=== PATIENT | male | born 1975 | race Caucasian/White ===

== ENCOUNTER 2020-06-26 04:14 | Observation (INO) ==
[2020-06-26 04:29] VITALS: BMI 31.3
--- NOTE | 2020-06-26 04:59 | DR.EXTPAIN ---
HPI - Time seen Time seen: 04:58 - PCP Primary Care Physician: NFD - Complaint/Symptoms Chief Complaint Doctor Comments: Patient seen earlier today with abdominal pain and diarrhea with bilateral lung opacities on CT scan states he is having right sided chest pain and left sided chest pain with pain in his back. states he is having problems breathing and cannot sleep. States he did not get his medicines when he left the hospital. He denies fever, chills, nausea or vomiting and states his diarrhea has resolved. Patient requesting to be admitted tonight. Chief Complaint:: "LUNGS ARE HURTING" Self Treatment fo Chief Complaint: WAS SEEN EARLIER IN THE ER FOR STOMACH PAIN,WAS PRESCRIBED AZITHROMYCIN - Nurses notes reviewed Nurses Notes Review: Yes - Source History Provided: Patient - Mode of arrival Mode of Arrival: Ambulatory - Timing Onset of Chief Complaint: 06/23/20 - Context History of: None - Associated signs and symptoms Associated Signs and Symptoms: Pain, Cough, Shortness of Breath PMH - PMH Past Medical History: No Past Surgical History: Yes Surgical History: Cholecystectomy - Family History History of Family Medical Conditions: Yes Family Medical History: Cancer - Social History Does patient currently use any type of tobacco product: No Have you used tobacco products in the last 12 months: No Type of Tobacco Use: None Does any household member use tobacco: No Alcohol Use: None Do you use any recreational Drugs:: No Lives With: Family Lives Where: Home - Travel Risk Coronavirus risk:travel/contact w/high risk person: No Has patient experienced Coronavirus symptoms: Yes Coronavirus symptoms experienced: Shortness of Breath - infectious screening In the last 2 months have you had wt loss of >10#?: YES Have you had fever, night sweats or hemotysis?: No Have you traveled outside the country in the last 6 months?: No Isolation: Standard ROS - Review of Systems Constitutional: No Symptoms Reported Eyes: No Symptoms Reported ENTM: No Symptoms Reported Respiratoy: No Symptoms Reported, Non-Productive Cough, Short of Breath Cardiovascular: No Symptoms Reported, Chest Pain Gastrointestinal/Abdominal: No Symptoms Reported. negative: See HPI, Abdominal Pain, Constipation, Diarrhea, Nausea, Vomiting, Food Intolerance, Other Genitourinary: No Symptoms Reported. negative: See HPI, Discharge, Dysuria, Frequency, Hematuria, Pain, Bleeding, Other Neurological: No Symptoms Reported Musculoskeletal: No Symptoms Reported, Back Pain Integumentary: No Symptoms Reported. negative: See HPI, Change in Color, Change in Hair/Nails, Dryness, Lesions, Lumps, Rash, Itching, Wound, Bruises, Juandice, Other Hematologic/Lymphatic: No Symptoms Reported Endocrine: No Symptoms Reported. negative: See HPI, Excessive Sweating, Flushing, Intolerance to Cold, Intolerance to Heat, Increased Hunger, Increased Thirst, Increased Urine, Unexplained Weight Gain, Unexplained Weight Loss, Failure to Thrive, Decreased Appetite, Other Psychiatric: No Symptoms Reported. negative: See HPI, Anxiety, Depression, Hallucinations, Excessive crying, Suicidal, Other PE - General Limitations: No Limitations General Appearance: Alert, In No Apparent Distress - Head Head Exam: Normal Inspection, Atraumatic, Normocephalic - Eyes Eye exam: Normal Appearance, PERRL, EOMI. negative: Scleral Icterus, Conjunctival Injection, Nystagmus, Miosis, Mydrasis, Periorbital Swelling, Periorbital Tenderness, Other - ENT ENT Exam: Normal Exam, Normal Oropharynx, Normal External Ear Exam, Mucous Membranes Moist, TM's Normal Bilaterally - Neck Neck Exam: Normal Inspection, Full ROM, Trachea Midline - Chest Chest Inspection: Normal Inspection, Symmetric Chest Wall Rise. negative: Tenderness, Rash, Abscess, Other - Respiratory Respiratory Exam: Normal Lung Sounds Bilat Respiratory Exam: Bilateral Clear to Auscultation - Cardiovascular Cardiovascular Exam: Regular Rate, Normal Rhythm, Normal Heart Sounds - Abdominal Exam Abdominal Exam: Normal Inspection, Normal Bowel Sounds, Soft. negative: Distention, Tenderness, Guarding, Rebound, Rigidity, Dimnished Bowel Sounds, Hyperactive Bowel Sounds, Hypoactive Bowel Sounds, Organomegaly, Trauma, Incision, Ascites, Mass, Bruit, Pulsatile Mass, Hernia, Other Abdominal Tenderness: negative: RUQ, RLQ, LUQ, LLQ, Epigastrium, Suprapubic, Diffuse, Mild, Moderate, Severe, Other - Extremities Extremities Exam: Normal Inspection, Full ROM, Normal Capillary Refill. negative: Tenderness, Edema, Joint Swelling, Calf Tenderness, Other - Upper Extremities Shoulder Exam: Normal Inspection, Full ROM. negative: Tenderness, Swelling, Abrasion, Laceration, Ecchymosis, Deformity, Crepitus, Dislocation, Erythema, Tenderness over AC Joint, Other Arm Exam: Normal Inspection, Full ROM. negative: Tenderness, Swelling, Abrasion, Laceration, Ecchymosis, Deformity, Crepitus, Erythema, Other Elbow Exam: Normal Inspection, Full ROM. negative: Tenderness, Swelling, Abrasion, Laceration, Ecchymosis, Deformity, Crepitus, Dislocation, Erythema, Effusion, Pain w/ pronation, Pain w/ Spuination, Tenderness over Radial Head, Other Forearm Exam: Normal Inspection, Full ROM. negative: Tenderness, Swelling, Abrasion, Laceration, Ecchymosis, Deformity, Crepitus, Erythema, Dislocation, Other Hand Exam: Normal Inspection, Full ROM. negative: Tenderness, Swelling, Abrasion, Laceration, Ecchymosis, Skin Avulsion, Deformity, Crepitus, Erythema, Dislocation, Amputation, Nail Avulsion, Subungual Hematoma, Other Neuromotor Exam: Normal Exam. negative: Wrist Extension, Thumb Opposition, Thumb IP Flexion, Thumb Adduction, Fingers 2-5 Abduction, Other Neurosensory Exam: Normal Exam Upper Ext. Vascular Exam: Capillary Refill (normal) - Lower Extremities Hip/Pelvis Exam: Normal Inspection, Full ROM. negative: Tenderness, Swelling, Abrasion, Laceration, Ecchymosis, Deformity, Crepitus, Dislocation, Erythema, Ex ternal Rotation, Internal Rotation, Shortening, Pelvis Stable, Other Upper Leg Exam: Normal Inspection, Full ROM. negative: Tenderness, Swelling, Abrasion, Laceration, Ecchymosis, Deformity, Crepitus, Dislocation, Erythema, Other Knee Exam: Normal Inspection, Full ROM. negative: Tenderness, Swelling, Abrasion, Laceration, Ecchymosis, Deformity, Crepitus, Dislocation, Erythema, Effusion, Anterior Drawer Sign, Posterior Draw Sign, Pain with Valgus, Laxity with Valgus, Pain with Varus, Knee Extension Intact, Other Lower Leg Exam: Normal Inspection, Full ROM. negative: Tenderness, Swelling, Abrasion, Laceration, Deformity, Ecchymosis, Crepitus, Dislocation, Erythema, Palpable Cord, Homans' Sign, Achilles Tendon Intact, Other Ankle Exam: Normal Inspection, Full ROM. negative: Tenderness, Swelling, Abrasion, Laceration, Ecchymosis, Deformity, Crepitus, Dislocation, Erythema, Tenderness over talofibular lig, Anterior Draw Sign, Other Foot/Toe Exam: Normal Inspection, Full ROM. negative: Tenderness, Swelling, Abrasion, Laceration, Ecchymosis, Deformity, Crepitus, Dislocation, Erythema, Amputation, Puncture Wound, Foreign Body, Calcaneal Tenderness, Nail Avulsion, Other Neurovascular/Tendon Exam: Normal Capillary Refill. negative: Pulse Deficit, Motor Deficit, Sensory Deficit, Tendon Deficit, Extremity Cold to Touch, Pallor, Normal 2-point discrimination, Normal Fine/Light Touch, Foot Drop, Peroneal Nerve Deficit, Other Gait Exam: Observed and Normal - Back Back Exam: Normal Inspection, Full ROM. negative: Tenderness, (R) CVA Tenderness, (L) CVA Tenderness, Muscle Spasm, Paraspinal Tenderness, Vertebral Tenderness, Rashes, (R) Sciatic Notch Tenderness, (L) Sciatic Notch Tendern, (R) Straight Leg Raise, (L) Straight Leg Raise, Other - Neurological Neurological Exam: Alert, Oriented X3, CN II-XII Intact, Normal Gait, Reflexes Normal. negative: Motor Sensory Deficit, Other - Psychiatric Psychiatric Exam: Normal Affect, Normal Mood. negative: Depressed, Agitated, Anxious, Flat Affect, Manic, Homicidal Ideation, Suicidal Ideation, Other - Skin Skin Exam: Warm, Dry, Intact, Normal Color Type of Lesion: negative: Rash, Abscess, Laceration, Foreign Body, Bite/Sting, Abrasion, Other Distribution: negative: Generalized, Involves Palms/Soles, Head, Face, Neck, Thorax, Chest, Back, Abdomen, Genitals, LUE, LLE, RUE, RLE, Other Description: negative: Size, Tenderness, Erythematous, Swelling, Macular, Papular, Vesicular, Blisters, Cofluent, Bullous, Petechial, Purpuric, Urticarial, Crusting, Discharge, Fluctuant, Indurated, Other - Vital Signs Vitals: Temperature 98.6 F Pulse Rate 95 Respiratory Rate 22 Blood Pressure 122/77 O2 Sat by Pulse Oximetry 98 Course - Reevaluation 1st: Improved - Consultation Called: 07:34 Call Returned: 07:34 (Dr. Garcia to admit) - Education/Counseling Education/Counseling: Patient, Family Educated On: Treatment, Diagnosis, Needs for Follow Up ROR - Labs Reviewed Laboratory Results Reviewed?: Yes (All labs and x-ray results reviewed and discu ssed with patient) Result Diagrams: 06/26/20 05:20 06/26/20 05:20 - XRAY XRAY Interpreted by: Radiologist (CXR: Low lung volume with patchy bibasilar atelectasis vs infiltrates.) - Labs Reviewed Laboratory: WBC 5.7 X10^3/uL (3.6-10.0) 06/26/20 05:20 RBC 4.48 X10^6/uL (4.7-6.0) L 06/26/20 05:20 Hgb 14.0 g/dL (13.5-18.0) 06/26/20 05:20 Hct 40.9 % (42.0-54.0) L 06/26/20 05:20 MCV 91.2 fL (80.0-100.0) 06/26/20 05:20 MCH 31.3 pg (27.0-34.0) 06/26/20 05:20 MCHC 34.3 g/dL (33.0-35.0) 06/26/20 05:20 RDW 12.6 % (11.6-16.5) 06/26/20 05:20 Plt Count 81 X10^3/uL (150.0-450.0) L 06/26/20 05:20 MPV 9.7 fL (7.4-11.0) 06/26/20 05:20 Neut % (Auto) 80.1 % (42.0-75.0) H 06/26/20 05:20 Lymph % (Auto) 12.4 % (21.0-51.0) L 06/26/20 05:20 [place] % (Auto) 6.9 % (0.0-13.0) 06/26/20 05:20 Eos % (Auto) 0.0 % (0.9-2.9) L 06/26/20 05:20 Baso % (Auto) 0.6 % (0.2-1.0) 06/26/20 05:20 Neut # (Auto) 4.5 x10^3/uL (2.2-4.8) 06/26/20 05:20 Lymph # (Auto) 0.7 X10^3/uL (1.3-2.9) L 06/26/20 05:20 [place] # (Auto) 0.4 x10^3/uL (0.3-0.8) 06/26/20 05:20 Eos # (Auto) 0.0 x10^3/uL (0.0-0.2) 06/26/20 05:20 Baso # (Auto) 0.0 X10^3/uL (0.0-0.1) 06/26/20 05:20 Absolute Nucleated RBC 0.1 /100WBC 06/26/20 05:20 PT 13.2 SECONDS (11.8-14.3) 06/26/20 05:20 INR Target Range - 06/26/20 05:20 INR 1.03 (0.8-1.3) 06/26/20 05:20 APTT 30.0 SECONDS (22.9-36.5) 06/26/20 05:20 PTT Comment - 06/26/20 05:20 D-Dimer 0.32 ug/ml (0.0-0.57) 06/26/20 05:20 Sodium 139 mmol/L (136-145) 06/26/20 05:20 Corrected Sodium 139 mmol/L (136-145) 06/26/20 05:20 Potassium 3.8 mmol/L (3.5-5.1) 06/26/20 05:20 Chloride 104 mmol/L (98-107) 06/26/20 05:20 Carbon Dioxide 26.7 mmol/L (21-32) 06/26/20 05:20 BUN 10 mg/dL (7-18) 06/26/20 05:20 Creatinine 1.03 mg/dL (0.70-1.30) 06/26/20 05:20 Est GFR (MDRD) Af Amer > 60 (>60) 06/26/20 05:20 Est GFR (MDRD) Non-Af > 60 (>60) 06/26/20 05:20 Glucose 117 mg/dL (65-99) H 06/26/20 05:20 Calcium 8.7 mg/dL (8.5-10.1) 06/26/20 05:20 Corrected Calcium TNP 06/26/20 05:20 Magnesium 1.8 mg/dL (1.7-2.9) 06/26/20 05:20 Total Bilirubin 0.80 mg/dL (0.2-1.0) 06/26/20 05:20 AST 99 Units/L (15-37) H 06/26/20 05:20 ALT 66 Units/L (12-78) 06/26/20 05:20 Alkaline Phosphatase 111 Units/L (46-116) 06/26/20 05:20 Creatine Kinase 52 Units/L (39-308) 06/26/20 05:20 CK-MB (CK-2) < 1.0 ng/mL (0-4.0) 06/26/20 05:20 CK/CKMB % Calc 1.9 % (<4) 06/26/20 05:20 Troponin I < 0.02 ng/mL (0-1.5) 06/26/20 05:20 Total Protein 7.0 g/dL (6.4-8.2) 06/26/20 05:20 Albumin 3.4 g/dL (3.4-5.0) 06/26/20 05:20 Globulin 3.6 g/dL (2.5-4.5) 06/26/20 05:20 Albumin/Globulin Ratio 0.9 Ratio (1.1-2.1) L 06/26/20 05:20 SARS-CoV-2 (PCR) Positive (NEGATIVE) A 06/26/20 05:56 Opioid - Opioid Risk Tool Age (Eleuterio box if 16-45): No History of Preadolescent Sexual Abuse: No Total: 0 Total Score Risk Category: Low Risk - Diagnosis Discharge Problem: Pneumonia due to COVID-19 virus, Hyperglycemia, Diarrhea due to COVID-19, Failure of outpatient treatment Chest pain Qualifiers: Chest pain type: unspecified Qualified Code(s): R07.9 - Chest pain, unspecified - Discharge Plan Disposition: ADMITTED INPATIENT Condition: Stable - Follow ups/Referrals Follow ups/Referrals: NFD,None [Primary Care Provider] - 3 days - Instructions
[2020-06-26 05:34] LABS: BASOPHILS % (AUTO) 0.6 % (0.2-1.0); HEMATOCRIT 40.9 % (42.0-54.0); LYMPHOCYTES # (AUTO) 0.7 X10^3/uL (1.3-2.9); LYMPHOCYTES % (AUTO) 12.4 % (21.0-51.0); MEAN CORPUSCULAR HEMOGLOBIN 31.3 pg (27.0-34.0); MEAN CORPUSCULAR HGB CONC 34.3 g/dL (33.0-35.0); MEAN CORPUSCULAR VOLUME 91.2 fL (80.0-100.0); MEAN PLATELET VOLUME 9.7 fL (7.4-11.0); MONOCYTES # (AUTO) 0.4 x10^3/uL (0.3-0.8); MONOCYTES % (AUTO) 6.9 % (0.0-13.0); NEUTROPHILS # (AUTO) 4.5 x10^3/uL (2.2-4.8); NEUTROPHILS % (AUTO) 80.1 % (42.0-75.0); PLATELET COUNT 81 X10^3/uL (150.0-450.0); RED BLOOD COUNT 4.48 X10^6/uL (4.7-6.0); RED CELL DISTRIBUTION WIDTH 12.6 % (11.6-16.5); WHITE BLOOD COUNT 5.7 X10^3/uL (3.6-10.0)
--- NOTE | 2020-06-26 05:45 | RAD ---
HISTORYCHEST PAINSTUDYCHEST, 1 [id number]/07/2020FINDINGSThe trachea is midline. The cardiac silhouette is unremarkable. Low lung volume. Patchy bibasilar atelectasis versus infiltrates. No pleural effusion or pneumothorax.. The bony thorax is unremarkable.IMPRESSIONLow lung volume with patchy bibasilar atelectasis versus infiltrates.Electronically signed by: Dalila Gómez (Jun 26, 2020 05:43:39)
[2020-06-26 05:53] LABS: BLOOD UREA NITROGEN 10 mg/dL (7-18); CALCIUM 8.7 mg/dL (8.5-10.1); CARBON DIOXIDE 26.7 mmol/L (21-32); CHLORIDE 104 mmol/L (98-107); COR NA(FOR HYPERGLY) 139 mmol/L (136-145); CREATININE 1.03 mg/dL (0.70-1.30); SODIUM 139 mmol/L (136-145); TROPONIN I < 0.02 ng/mL (0-1.5); eGFR NON BLACK RACES > 60 (>60)
[2020-06-26 05:59] LABS: ALANINE AMINOTRANSFERASE 66 Units/L (12-78); ALBUMIN 3.4 g/dL (3.4-5.0); ALKALINE PHOSPHATASE 111 Units/L (46-116); ASPARTATE AMINO TRANSFERASE 99 Units/L (15-37); CKMB % 1.9 % (<4); CREATINE KINASE 52 Units/L (39-308); CREATINE KINASE MB < 1.0 ng/mL (0-4.0); MAGNESIUM 1.8 mg/dL (1.7-2.9)
[2020-06-26] MEDS ORDERED: NS 1000 ML 1,000 ML ONE (08:29)
[2020-06-26] MEDS: NS 1000 ML 1,000 ML IV SCH (08:40)
[2020-06-26] MEDS: ASCORBIC ACID INJ MULTI-DOSE VIAL 1,500 MG in NS 100 ML IV 100 ML IV SCH ×3 (09:22→21:02)
[2020-06-26] MEDS: VITAMIN D (1.25MG) PO SCH ×2 (09:23→09:28)
[2020-06-26] MEDS: DECADRON TAB PO SCH ×2 (09:23→09:27)
[2020-06-26] MEDS: TRICOR TAB 160 MG PO SCH (09:23)
[2020-06-26] MEDS: LOVENOX INJ 30 MG SYR SC SCH ×2 (09:23→21:02)
[2020-06-26] MEDS: PLAQUENIL PO SCH ×2 (09:23→09:29)
[2020-06-26] MEDS: ZINC SULFATE PO SCH ×2 (09:23→21:02)
[2020-06-26] MEDS ORDERED: REMDESIVIR 200 MG in NS 250 ML IV 250 ML IV SCH (09:25)
--- NOTE | 2020-06-26 10:29 | DR.H&P ---
H&P History & Physical for Day of: H&P Date: 06/26/20 Chief Complaint Chief Complaint: Abdominal pain/diarrhea Shortness of breath Allergies Allergies Allergy/AdvReac Type Severity Reaction Status Date / Time No Known Drug Allergies Allergy Verified 06/26/20 07:42 History of Present Illness History of Present Illness: Pt is a 45 y/o m no pmhx presenting after having persistent abdominal pain, diarrhea, and shortness of breath. He reports that symptoms started last and have gradually worsened. On the night before admission, pt had difficulty breathing and was unable to sleep. Labs/imaging:Wbc 5.7, Hgb 14, Plt 81, Na 139, K 3.8, Cr 1.03, Plt 117, AST 99, ALT 66, ALP 111, Troponin negative, CRP 30, UA +ketones, COVID19 positive (06/26). CXR: Low lung volume with patchy bibasilar atelectasis versus infiltrates. CTA: No evidence of pulmonary embolism. Ground-glass opacities scattered in the bilateral lungs concerning for pneumonia. CTAP: No intra-abdominal or pelvic abnormality identified. Cholecystectomy. Will treat patient for OOVID19 pneumonia and start on treatments: Remdesivir, Zosyn, Solumedrol 80mg Q8h, Tricor, Bronchodilators, supplemental O2 prn, Lovenox DVT ppx, Pneumonia protocol. Will continue to monitor and follow up labs/imaging in the morning. Past Surgical History Surgical History: Cholecystectomy Family History Family Medical History: Cancer Social History Does patient currently use any type of tobacco product: No Have you used tobacco products in the last 12 months: No Type of Tobacco Use: None Does any household member use tobacco: No Alcohol Use: None Medications Home Medications: No Known Drug Allergies Allergy (Verified 06/26/20 07:42) CONTINUE taking the following medications NK 06/26/20 [History] Labs Result Diagrams: 06/26/20 05:20 06/26/20 05:20 Labs: Laboratory WBC 5.7 X10^3/uL (3.6-10.0) 06/26/20 05:20 RBC 4.48 X10^6/uL (4.7-6.0) L 06/26/20 05:20 Hgb 14.0 g/dL (13.5-18.0) 06/26/20 05:20 Hct 40.9 % (42.0-54.0) L 06/26/20 05:20 MCV 91.2 fL (80.0-100.0) 06/26/20 05:20 MCH 31.3 pg (27.0-34.0) 06/26/20 05:20 MCHC 34.3 g/dL (33.0-35.0) 06/26/20 05:20 RDW 12.6 % (11.6-16.5) 06/26/20 05:20 Plt Count 81 X10^3/uL (150.0-450.0) L 06/26/20 05:20 MPV 9.7 fL (7.4-11.0) 06/26/20 05:20 Neut % (Auto) 80.1 % (42.0-75.0) H 06/26/20 05:20 Lymph % (Auto) 12.4 % (21.0-51.0) L 06/26/20 05:20 [place] % (Auto) 6.9 % (0.0-13.0) 06/26/20 05:20 Eos % (Auto) 0.0 % (0.9-2.9) L 06/26/20 05:20 Baso % (Auto) 0.6 % (0.2-1.0) 06/26/20 05:20 Neut # (Auto) 4.5 x10^3/uL (2.2-4.8) 06/26/20 05:20 Lymph # (Auto) 0.7 X10^3/uL (1.3-2.9) L 06/26/20 05:20 [place] # (Auto) 0.4 x10^3/uL (0.3-0.8) 06/26/20 05:20 Eos # (Auto) 0.0 x10^3/uL (0.0-0.2) 06/26/20 05:20 Baso # (Auto) 0.0 X10^3/uL (0.0-0.1) 06/26/20 05:20 Absolute Nucleated RBC 0.1 /100WBC 06/26/20 05:20 PT 13.2 SECONDS (11.8-14.3) 06/26/20 05:20 INR Target Range - 06/26/20 05:20 INR 1.03 (0.8-1.3) 06/26/20 05:20 APTT 30.0 SECONDS (22.9-36.5) 06/26/20 05:20 PTT Comment - 06/26/20 05:20 D-Dimer 0.32 ug/ml (0.0-0.57) 06/26/20 05:20 Sodium 139 mmol/L (136-145) 06/26/20 05:20 Corrected Sodium 139 mmol/L (136-145) 06/26/20 05:20 Potassium 3.8 mmol/L (3.5-5.1) 06/26/20 05:20 Chloride 104 mmol/L (98-107) 06/26/20 05:20 Carbon Dioxide 26.7 mmol/L (21-32) 06/26/20 05:20 BUN 10 mg/dL (7-18) 06/26/20 05:20 Creatinine 1.03 mg/dL (0.70-1.30) 06/26/20 05:20 Est GFR (MDRD) Af Amer > 60 (>60) 06/26/20 05:20 Est GFR (MDRD) Non-Af > 60 (>60) 06/26/20 05:20 Glucose 117 mg/dL (65-99) H 06/26/20 05:20 Calcium 8.7 mg/dL (8.5-10.1) 06/26/20 05:20 Corrected Calcium TNP 06/26/20 05:20 Magnesium 1.8 mg/dL (1.7-2.9) 06/26/20 05:20 Total Bilirubin 0.80 mg/dL (0.2-1.0) 06/26/20 05:20 AST 99 Units/L (15-37) H 06/26/20 05:20 ALT 66 Units/L (12-78) 06/26/20 05:20 Alkaline Phosphatase 111 Units/L (46-116) 06/26/20 05:20 Creatine Kinase 52 Units/L (39-308) 06/26/20 05:20 CK-MB (CK-2) < 1.0 ng/mL (0-4.0) 06/26/20 05:20 CK/CKMB % Calc 1.9 % (<4) 06/26/20 05:20 Troponin I < 0.02 ng/mL (0-1.5) 06/26/20 05:20 Total Protein 7.0 g/dL (6.4-8.2) 06/26/20 05:20 Albumin 3.4 g/dL (3.4-5.0) 06/26/20 05:20 Globulin 3.6 g/dL (2.5-4.5) 06/26/20 05:20 Albumin/Globulin Ratio 0.9 Ratio (1.1-2.1) L 06/26/20 05:20 SARS-CoV-2 (PCR) Positive (NEGATIVE) A 06/26/20 05:56 Review of Systems Constitutional: Chills and Weakness; denies Fever Eyes: No Symptoms Reported ENT: No Symptoms Reported Respiratory: Shortness of Breath and Pleuritic Pain Cardiovascular: No Symptoms Reported Gastrointestinal: Abdominal Pain and Diarrhea; denies Nausea, Vomiting and Constipation Musculoskeletal: No Symptoms Reported Skin: No Symptoms Reported Neurological: No Symptoms Reported Physical Exam Vital Signs: Temperature 97.5 F Pulse Rate 87 Respiratory Rate 18 Blood Pressure 150/79 O2 Sat by Pulse Oximetry 95 Oriented: Normal Eyes: Normal Ear: Normal Nose: Normal Throat: Normal Respiratory: RLL Rales and LLL Rales Cardiovascular: Normal : Normal Auscultation: Bowel Sounds: Normal Palpation: Normal Tenderness: Epigastric and Mild Skin: Normal Musculoskeletal: Normal Psychiatric: Normal Mood Description: Calm and Appropriate Affect: Normal Speech Pattern: Clear and Appropriate Assessment/Plan (1) Pneumonia due to COVID-19 virus: Status: Acute Plan: Remdesivir, Zosyn, Solumedrol, Bronchodilators. Pneumonia protocol (2) Diarrhea: Qualifiers: Diarrhea type: unspecified type Qualified Code(s): R19.7 - Diarrhea, unspecified Status: Acute Review H&P Reviewed: Yes Patient was examined?: Yes
[2020-06-26] MEDS: ZOSYN VIAL 3.375 GRAMS 3.375 G in NS 100 ML IV + SPIKE MINIBAG* 100 ML IV SCH ×3 (10:31→21:54)
[2020-06-26] MEDS ORDERED: DUONEB 0.5 MG/3 MG (3 mL) NEB SCH (12:00)
[2020-06-26] MEDS ORDERED: VENTOLIN or PROAIR HFA ONE (12:38)
[2020-06-26] MEDS: VENTOLIN or PROAIR HFA IN SCH ×2 (13:00→20:40)
[2020-06-26] MEDS: SOLU-Medrol 125 MG VIAL IVP SCH ×2 (13:17→21:02)
[2020-06-26] MEDS ORDERED: VENTOLIN or PROAIR HFA IN SCH (14:00)
[2020-06-26] MEDS ORDERED: HYCODAN SYRUP PO PRN (20:36)
[2020-06-26] MEDS ORDERED: TESSALON PERLES PO PRN (20:37)
[2020-06-26] MEDS ORDERED: MORPHINE SULFATE INJ 2 MG INJ IVP ONE (23:36)
[2020-06-26] MEDS ORDERED: MORPHINE SULFATE INJ 2 MG INJ ONE (23:38)
[2020-06-27] MEDS ORDERED: POTASSIUM CHL 40 MEQ/NS 0.45% 500 ML IV PRN (02:07)
[2020-06-27] MEDS ORDERED: MICRO K EXTEN CAP 10 MEQ PO PRN (02:07)
[2020-06-27] MEDS ORDERED: POTASSIUM CHL 60 MEQ/NS 0.45% 500 ML IV PRN (02:07)
[2020-06-27] MEDS ORDERED: KLOR-CON PO PRN (02:07)
[2020-06-27] MEDS ORDERED: K-DUR TAB 20 MEQ PO PRN (02:07)
[2020-06-27] MEDS ORDERED: K-RIDER 10 MEQ/NS 100 ML 10 MEQ/100 ML BAG IV PRN (02:07)
[2020-06-27] MEDS ORDERED: POTASSIUM CHLORIDE LIQ 20 MEQ UDC PO PRN (02:07)
[2020-06-27] MEDS ORDERED: MAGNESIUM SULFATE 1 GRAM/100 mL PREMIX 2 G/200 ML BAG IV ONE (02:10)
[2020-06-27] MEDS: ASCORBIC ACID INJ MULTI-DOSE VIAL 1,500 MG in NS 100 ML IV 100 ML IV SCH ×4 (02:10→20:31)
[2020-06-27] MEDS: MAGNESIUM SULFATE 1 GRAM/100 mL PREMIX 1 GM/100 ML BAG IV PRN ×2 (02:45→03:45)
[2020-06-27 05:39] LABS: BASOPHILS % (AUTO) 0.2 % (0.2-1.0); HEMOGLOBIN 13.8 g/dL (13.5-18.0); LYMPHOCYTES # (AUTO) 0.6 X10^3/uL (1.3-2.9); MEAN CORPUSCULAR HEMOGLOBIN 31.4 pg (27.0-34.0); MEAN CORPUSCULAR HGB CONC 34.4 g/dL (33.0-35.0); MEAN CORPUSCULAR VOLUME 91.2 fL (80.0-100.0); MEAN PLATELET VOLUME 10.1 fL (7.4-11.0); MONOCYTES # (AUTO) 0.1 x10^3/uL (0.3-0.8); MONOCYTES % (AUTO) 4.4 % (0.0-13.0); NEUTROPHILS # (AUTO) 2.6 x10^3/uL (2.2-4.8); NEUTROPHILS % (AUTO) 76.4 % (42.0-75.0); PLATELET COUNT 97 X10^3/uL (150.0-450.0); RED BLOOD COUNT 4.38 X10^6/uL (4.7-6.0); RED CELL DISTRIBUTION WIDTH 12.9 % (11.6-16.5); WHITE BLOOD COUNT 3.4 X10^3/uL (3.6-10.0)
[2020-06-27] MEDS: VENTOLIN or PROAIR HFA IN SCH ×4 (05:41→21:27)
[2020-06-27] MEDS: SOLU-Medrol 125 MG VIAL IVP SCH ×3 (05:53→21:26)
[2020-06-27] MEDS: ZOSYN VIAL 3.375 GRAMS 3.375 G in NS 100 ML IV + SPIKE MINIBAG* 100 ML IV SCH ×3 (05:53→21:26)
[2020-06-27] MEDS: HumuLIN R SC PRN ×3 (05:53→20:35)
[2020-06-27 05:58] LABS: ALANINE AMINOTRANSFERASE 54 Units/L (12-78); ALBUMIN 3.2 g/dL (3.4-5.0); ALKALINE PHOSPHATASE 103 Units/L (46-116); ASPARTATE AMINO TRANSFERASE 39 Units/L (15-37); BLOOD UREA NITROGEN 6 mg/dL (7-18); CARBON DIOXIDE 28.7 mmol/L (21-32); CHLORIDE 105 mmol/L (98-107); COR CA(FOR HYPOALB) 9.6 mg/dL (8.5-10.1); COR NA(FOR HYPERGLY) 142 mmol/L (136-145); CREATININE 0.89 mg/dL (0.70-1.30); SODIUM 140 mmol/L (136-145); eGFR NON BLACK RACES > 60 (>60)
--- NOTE | 2020-06-27 06:15 | RAD ---
HISTORYPNEUMONIASTUDYCHEST, 1 VIEWCOMPARISONOne day priorTECHNIQUEAP view of the chestFINDINGSThe cardiac and mediastinal contours are within normal limits. Left medial base subsegmental atelectasis. Improved bibasilar patchy opacities. No pleural effusion or pneumothorax.IMPRESSIONLeft base subsegmental atelectasis. Improved bibasilar patchy opacities suspicious for pneumoniaElectronically signed by: Lamine Waldron (Jun 27, 2020 06:14:12)
[2020-06-27] MEDS ORDERED: DUONEB 0.5 MG/3 MG (3 mL) NEB ONE (08:09)
--- NOTE | 2020-06-27 08:18 | PCM.PROG ---
Progress Note Progress Note for Day of Date of Exam: 06/27/20 Subjective Subjective: Pt is a 45 y/o m no pmhx admitted for COVID19 pneumonia(positive 06/26). This morning he reports feeling a little better. Overnight he did have some chest tightness but was given a dose of morphine that helped and allowed him to sleep. Labs/imaging: Wbc 3.4, Hgb 13.8, Plt 97, Na 140, K 4.5, Cr 0.89, Plt 188, CRP 30>29, CXR: Left base subsegmental atelectasis. Improved bibasilar patchy opacities suspicious for pneumonia. Treatment course includes: Remdesivir, Zosyn, Solumedrol 80mg Q8h, Tricor, Bronchodilators, supplemental O2 prn, Lovenox DVT ppx, Pneumonia protocol. CXR shows some improvement in pneumonia. Continue current treatments, monitor and follow up labs/imaging in the morning. Past Medical Family Social History Past Med/Fam/Surg Hx: No changes since H&P Allergies: Allergies No Known Drug Allergies Allergy (Verified 06/26/20 07:42) Review of Systems ROS: No change since H&P Vital Signs and I&O's Vital Signs: Temperature 98.3 F Pulse Rate 81 Respiratory Rate 19 Blood Pressure 133/69 O2 Sat by Pulse Oximetry 100 Intake and Output: Intake & Output 06/24/20 06/25/20 06/26/20 06/27/20 23:59 23:59 23:59 23:59 Intake Total 1793 / 1793 795 / 795 Output Total 600 / 600 Balance 1793 / 1793 195 / 195 Physical Exam Oriented: Normal Eyes: Normal Ear: Normal Nose: Normal Throat: Normal Respiratory: Rales (mild bilateral lower lung bases ) Cardiovascular: Normal : Normal Auscultation: Bowel Sounds: Normal Tenderness: Normal Skin: Normal Musculoskeletal: Normal Psychiatric: Normal Mood Description: Calm and Appropriate Affect: Normal Speech Pattern: Clear and Appropriate Laboratory and Diagnostics Result Diagrams: 06/27/20 05:14 06/27/20 05:14 Labs: Laboratory WBC 3.4 X10^3/uL (3.6-10.0) L 06/27/20 05:14 RBC 4.38 X10^6/uL (4.7-6.0) L 06/27/20 05:14 Hgb 13.8 g/dL (13.5-18.0) 06/27/20 05:14 Hct 40.0 % (42.0-54.0) L 06/27/20 05:14 MCV 91.2 fL (80.0-100.0) 06/27/20 05:14 MCH 31.4 pg (27.0-34.0) 06/27/20 05:14 MCHC 34.4 g/dL (33.0-35.0) 06/27/20 05:14 RDW 12.9 % (11.6-16.5) 06/27/20 05:14 Plt Count 97 X10^3/uL (150.0-450.0) L 06/27/20 05:14 MPV 10.1 fL (7.4-11.0) 06/27/20 05:14 Neut % (Auto) 76.4 % (42.0-75.0) H 06/27/20 05:14 Lymph % (Auto) 19.0 % (21.0-51.0) L 06/27/20 05:14 [place] % (Auto) 4.4 % (0.0-13.0) 06/27/20 05:14 Eos % (Auto) 0.0 % (0.9-2.9) L 06/27/20 05:14 Baso % (Auto) 0.2 % (0.2-1.0) 06/27/20 05:14 Neut # (Auto) 2.6 x10^3/uL (2.2-4.8) 06/27/20 05:14 Lymph # (Auto) 0.6 X10^3/uL (1.3-2.9) L 06/27/20 05:14 [place] # (Auto) 0.1 x10^3/uL (0.3-0.8) L 06/27/20 05:14 Eos # (Auto) 0.0 x10^3/uL (0.0-0.2) 06/27/20 05:14 Baso # (Auto) 0.0 X10^3/uL (0.0-0.1) 06/27/20 05:14 Absolute Nucleated RBC 0.2 /100WBC 06/27/20 05:14 PT 13.2 SECONDS (11.8-14.3) 06/26/20 05:20 INR Target Range - 06/26/20 05:20 INR 1.03 (0.8-1.3) 06/26/20 05:20 APTT 30.0 SECONDS (22.9-36.5) 06/26/20 05:20 PTT Comment - 06/26/20 05:20 D-Dimer 0.32 ug/ml (0.0-0.57) 06/26/20 05:20 Sodium 140 mmol/L (136-145) 06/27/20 05:14 Corrected Sodium 142 mmol/L (136-145) 06/27/20 05:14 Potassium 4.5 mmol/L (3.5-5.1) 06/27/20 05:14 Chloride 105 mmol/L (98-107) 06/27/20 05:14 Carbon Dioxide 28.7 mmol/L (21-32) 06/27/20 05:14 BUN 6 mg/dL (7-18) L 06/27/20 05:14 Creatinine 0.89 mg/dL (0.70-1.30) 06/27/20 05:14 Est GFR (MDRD) Af Amer > 60 (>60) 06/27/20 05:14 Est GFR (MDRD) Non-Af > 60 (>60) 06/27/20 05:14 Glucose 188 mg/dL (65-99) H 06/27/20 05:14 POC Glucose (mg/dL) 165 mg/dL (65-99) H 06/27/20 05:33 Calcium 9.0 mg/dL (8.5-10.1) 06/27/20 05:14 Corrected Calcium 9.6 mg/dL (8.5-10.1) 06/27/20 05:14 Magnesium 2.6 mg/dL (1.7-2.9) 06/27/20 05:14 Total Bilirubin 0.40 mg/dL (0.2-1.0) 06/27/20 05:14 AST 39 Units/L (15-37) H 06/27/20 05:14 ALT 54 Units/L (12-78) 06/27/20 05:14 Alkaline Phosphatase 103 Units/L (46-116) 06/27/20 05:14 Creatine Kinase 52 Units/L (39-308) 06/26/20 05:20 CK-MB (CK-2) < 1.0 ng/mL (0-4.0) 06/26/20 05:20 CK/CKMB % Calc 1.9 % (<4) 06/26/20 05:20 Troponin I < 0.02 ng/mL (0-1.5) 06/26/20 05:20 C-Reactive Protein 29.30 mg/L (0-3.0) H 06/27/20 05:14 Total Protein 7.0 g/dL (6.4-8.2) 06/27/20 05:14 Albumin 3.2 g/dL (3.4-5.0) L 06/27/20 05:14 Globulin 3.8 g/dL (2.5-4.5) 06/27/20 05:14 Albumin/Globulin Ratio 0.8 Ratio (1.1-2.1) L 06/27/20 05:14 SARS-CoV-2 (PCR) Positive (NEGATIVE) A 06/26/20 05:56 Plan (1) Pneumonia due to COVID-19 virus: Status: Acute Plan: Remdesivir, Zosyn, Solumedrol, Bronchodilators. Pneumonia protocol (2) Diarrhea: Status: Acute Qualifiers: Diarrhea type: unspecified type Qualified Code(s): R19.7 - Diarrhea, unspecified
[2020-06-27] MEDS: NS 1000 ML 1,000 ML IV SCH (08:58)
[2020-06-27] MEDS: LOVENOX INJ 30 MG SYR SC SCH ×2 (08:58→20:39)
[2020-06-27] MEDS: TRICOR TAB 160 MG PO SCH (09:00)
[2020-06-27] MEDS: ZINC SULFATE PO SCH ×2 (09:00→20:32)
[2020-06-27] MEDS: REMDESIVIR 100 MG in NS 250 ML IV 250 ML IV SCH (09:58)
[2020-06-27] MEDS ORDERED: TUSSIONEX PENNKINETIC SUSP PO PRN (11:00)
[2020-06-27] MEDS ORDERED: COLACE CAP 100 MG PO PRN (13:35)
[2020-06-28] MEDS: ASCORBIC ACID INJ MULTI-DOSE VIAL 1,500 MG in NS 100 ML IV 100 ML IV SCH ×3 (02:18→13:59)
[2020-06-28] MEDS: ZOSYN VIAL 3.375 GRAMS 3.375 G in NS 100 ML IV + SPIKE MINIBAG* 100 ML IV SCH ×2 (05:28→13:56)
[2020-06-28] MEDS: SOLU-Medrol 125 MG VIAL IVP SCH ×2 (05:28→13:56)
[2020-06-28 05:51] LABS: ALANINE AMINOTRANSFERASE 39 Units/L (12-78); ALKALINE PHOSPHATASE 86 Units/L (46-116); ASPARTATE AMINO TRANSFERASE 23 Units/L (15-37); BLOOD UREA NITROGEN 13 mg/dL (7-18); CALCIUM 8.7 mg/dL (8.5-10.1); CARBON DIOXIDE 28.2 mmol/L (21-32); CHLORIDE 109 mmol/L (98-107); COR CA(FOR HYPOALB) 9.5 mg/dL (8.5-10.1); COR NA(FOR HYPERGLY) 145 mmol/L (136-145); CREATININE 0.97 mg/dL (0.70-1.30); SODIUM 144 mmol/L (136-145); TOTAL PROTEIN 6.3 g/dL (6.4-8.2); eGFR NON BLACK RACES > 60 (>60)
[2020-06-28 06:01] LABS: BASOPHILS % (AUTO) 0.2 % (0.2-1.0); HEMATOCRIT 38.6 % (42.0-54.0); HEMOGLOBIN 13.3 g/dL (13.5-18.0); LYMPHOCYTES # (AUTO) 1.3 X10^3/uL (1.3-2.9); LYMPHOCYTES % (AUTO) 12.2 % (21.0-51.0); MEAN CORPUSCULAR HEMOGLOBIN 31.2 pg (27.0-34.0); MEAN CORPUSCULAR HGB CONC 34.4 g/dL (33.0-35.0); MEAN CORPUSCULAR VOLUME 90.7 fL (80.0-100.0); MEAN PLATELET VOLUME 10.1 fL (7.4-11.0); MONOCYTES # (AUTO) 0.7 x10^3/uL (0.3-0.8); NEUTROPHILS # (AUTO) 8.9 x10^3/uL (2.2-4.8); NEUTROPHILS % (AUTO) 81.6 % (42.0-75.0); PLATELET COUNT 133 X10^3/uL (150.0-450.0); RED BLOOD COUNT 4.25 X10^6/uL (4.7-6.0); RED CELL DISTRIBUTION WIDTH 12.7 % (11.6-16.5); WHITE BLOOD COUNT 10.8 X10^3/uL (3.6-10.0)
--- NOTE | 2020-06-28 06:13 | RAD ---
HISTORYPneumoniaSTUDYChest AP [id number]/2020FINDINGSThe heart is within normal limits in size. The madelaine are normal. The lungs are free of acute alveolar infiltrates. There is minimal subsegmental atelectasis in the left lung base. No pleural effusions are identified. Bony thorax is unremarkable.IMPRESSIONNo acute infiltratesSubsegmental atelectasis left lung base unchangedElectronically signed by: PATSY RG (Jun 28, 2020 06:11:36)
[2020-06-28] MEDS: VENTOLIN or PROAIR HFA IN SCH ×2 (06:14→14:30)
--- NOTE | 2020-06-28 08:23 | W.DIS.FURT ---
Summary of Discharge Discharge Summary of Date Date of Exam: 06/28/20 Admission Date Date of Admission: 06/26/20 Admission Diagnosis Patient Problems (Updated 06/26/20 @ 07:35 by NEY POWELL) Chest pain (Acute) R07.9 Pneumonia due to COVID-19 virus (Acute) U07.1, J12.89 Hyperglycemia (Acute) R73.9 Diarrhea due to COVID-19 (Acute) U07.1, A08.39 Failure of outpatient treatment (Acute) Z78.9 Hospital Course: Pt is a 45 y/o m no pmhx admitted for COVID19 pneumonia(positive 06/26). He treatment course included: Remdesivir, Zosyn, Solumedrol 80mg Q8h, Tricor, Bronchodilators, supplemental O2 prn, Lovenox DVT ppx, Pneumonia protocol. Labs/imaging: Wbc 10.8, Hgb 13.3, Plt 133, Na 144, K 4.1, Cr 0.97, Glucose 135, CRP 30>29>11, CXR: No acute infiltrates. Subsegmental atelectasis left lung base unchanged. Pt responded well to treatments. He did not require any supplemental O2. Pt was discharged in stable condition, rx Levaquin x 5 days and Prednisone x 5 days, instructed to follow up with pcp in 1 week. Vital Signs: Vital Signs (72 hours) 06/25/20 14:08 06/26/20 04:21 06/26/20 09:04 Temperature 98.6 F Pulse Rate 95 H 89 Respiratory Rate 22 20 Blood Pressure 147/88 122/77 163/67 O2 Sat by Pulse Oximetry 98 96 06/26/20 09:10 06/26/20 10:36 06/26/20 12:00 Temperature 97.5 F L 97.5 F L 98.8 F Pulse Rate 87 87 80 Respiratory Rate 18 18 22 Blood Pressure 150/79 150/79 151/83 O2 Sat by Pulse Oximetry 95 95 95 06/26/20 16:00 06/26/20 20:00 06/26/20 20:40 Temperature 98.1 F 99.4 F Pulse Rate 88 90 85 Respiratory Rate 14 13 Blood Pressure 140/79 155/80 O2 Sat by Pulse Oximetry 95 95 94 L 06/26/20 23:50 06/27/20 00:00 06/27/20 00:20 Temperature 99.0 F Pulse Rate 75 Respiratory Rate 13 14 15 Blood Pressure 150/70 O2 Sat by Pulse Oximetry 95 06/27/20 04:00 06/27/20 08:00 06/27/20 08:50 Temperature 98.3 F 98.3 F Pulse Rate 61 81 87 Respiratory Rate 12 19 Blood Pressure 133/70 133/69 O2 Sat by Pulse Oximetry 99 100 95 06/27/20 12:00 06/27/20 16:00 06/27/20 20:00 Temperature 99.3 F 98.1 F 98.3 F Pulse Rate 90 75 86 Respiratory Rate 16 16 Blood Pressure 135/71 126/72 139/76 O2 Sat by Pulse Oximetry 95 95 96 06/27/20 21:27 06/28/20 00:00 06/28/20 02:42 Temperature 97.9 F Pulse Rate 67 62 52 L Respiratory Rate 18 16 Blood Pressure 128/74 O2 Sat by Pulse Oximetry 97 93 L 95 06/28/20 04:00 Temperature 98 F Pulse Rate 49 L Respiratory Rate 16 Blood Pressure 133/70 O2 Sat by Pulse Oximetry 94 L Labs: Laboratory Last Values WBC 10.8 X10^3/uL (3.6-10.0) H 06/28/20 05:12 RBC 4.25 X10^6/uL (4.7-6.0) L 06/28/20 05:12 Hgb 13.3 g/dL (13.5-18.0) L 06/28/20 05:12 Hct 38.6 % (42.0-54.0) L 06/28/20 05:12 MCV 90.7 fL (80.0-100.0) 06/28/20 05:12 MCH 31.2 pg (27.0-34.0) 06/28/20 05:12 MCHC 34.4 g/dL (33.0-35.0) 06/28/20 05:12 RDW 12.7 % (11.6-16.5) 06/28/20 05:12 Plt Count 133 X10^3/uL (150.0-450.0) L 06/28/20 05:12 MPV 10.1 fL (7.4-11.0) 06/28/20 05:12 Neut % (Auto) 81.6 % (42.0-75.0) H 06/28/20 05:12 Lymph % (Auto) 12.2 % (21.0-51.0) L 06/28/20 05:12 [place] % (Auto) 6.0 % (0.0-13.0) 06/28/20 05:12 Eos % (Auto) 0.0 % (0.9-2.9) L 06/28/20 05:12 Baso % (Auto) 0.2 % (0.2-1.0) 06/28/20 05:12 Neut # (Auto) 8.9 x10^3/uL (2.2-4.8) H 06/28/20 05:12 Lymph # (Auto) 1.3 X10^3/uL (1.3-2.9) 06/28/20 05:12 [place] # (Auto) 0.7 x10^3/uL (0.3-0.8) 06/28/20 05:12 Eos # (Auto) 0.0 x10^3/uL (0.0-0.2) 06/28/20 05:12 Baso # (Auto) 0.0 X10^3/uL (0.0-0.1) 06/28/20 05:12 Absolute Nucleated RBC 0.0 /100WBC 06/28/20 05:12 PT 13.2 SECONDS (11.8-14.3) 06/26/20 05:20 INR Target Range - 06/26/20 05:20 INR 1.03 (0.8-1.3) 06/26/20 05:20 APTT 30.0 SECONDS (22.9-36.5) 06/26/20 05:20 PTT Comment - 06/26/20 05:20 D-Dimer 0.32 ug/ml (0.0-0.57) 06/26/20 05:20 Sodium 144 mmol/L (136-145) 06/28/20 05:12 Corrected Sodium 145 mmol/L (136-145) 06/28/20 05:12 Potassium 4.1 mmol/L (3.5-5.1) 06/28/20 05:12 Chloride 109 mmol/L (98-107) H 06/28/20 05:12 Carbon Dioxide 28.2 mmol/L (21-32) 06/28/20 05:12 BUN 13 mg/dL (7-18) 06/28/20 05:12 Creatinine 0.97 mg/dL (0.70-1.30) 06/28/20 05:12 Est GFR (MDRD) Af Amer > 60 (>60) 06/28/20 05:12 Est GFR (MDRD) Non-Af > 60 (>60) 06/28/20 05:12 Glucose 135 mg/dL (65-99) H 06/28/20 05:12 POC Glucose (mg/dL) 132 mg/dL (65-99) H 06/28/20 05:12 Calcium 8.7 mg/dL (8.5-10.1) 06/28/20 05:12 Corrected Calcium 9.5 mg/dL (8.5-10.1) 06/28/20 05:12 Magnesium 2.6 mg/dL (1.7-2.9) 06/27/20 05:14 Total Bilirubin 0.30 mg/dL (0.2-1.0) 06/28/20 05:12 AST 23 Units/L (15-37) 06/28/20 05:12 ALT 39 Units/L (12-78) 06/28/20 05:12 Alkaline Phosphatase 86 Units/L (46-116) 06/28/20 05:12 Creatine Kinase 52 Units/L (39-308) 06/26/20 05:20 CK-MB (CK-2) < 1.0 ng/mL (0-4.0) 06/26/20 05:20 CK/CKMB % Calc 1.9 % (<4) 06/26/20 05:20 Troponin I < 0.02 ng/mL (0-1.5) 06/26/20 05:20 C-Reactive Protein 11.70 mg/L (0-3.0) H 06/28/20 05:12 Total Protein 6.3 g/dL (6.4-8.2) L 06/28/20 05:12 Albumin 3.0 g/dL (3.4-5.0) L 06/28/20 05:12 Globulin 3.3 g/dL (2.5-4.5) 06/28/20 05:12 Albumin/Globulin Ratio 0.9 Ratio (1.1-2.1) L 06/28/20 05:12 SARS-CoV-2 (PCR) Positive (NEGATIVE) A 06/26/20 05:56 Reason For Visit: CHEST PAIN, COVID PNEUMONIA, HYPERGLYCEMIA Discharge Date Discharge Date: 06/28/20 Discharge Diagnosis All Active Problems (Updated 06/26/20 @ 07:35 by NEY POWELL) Abdominal pain in male (Acute) Diarrhea (Acute) Bilateral pulmonary infiltrates on CXR (Acute) Diverticulosis of colon (Acute) Chest discomfort (Acute) Suspected COVID-19 virus infection (Acute) Chest pain (Acute) Pneumonia due to COVID-19 virus (Acute) Hyperglycemia (Acute) Diarrhea due to COVID-19 (Acute) Failure of outpatient treatment (Acute) Plan of Treatment: Continue with present treatment and follow up plan. Pt is to keep follow up appointment as instructed and take medications as ordered. Discharge Medications Discharge Medications: No Known Drug Allergies Allergy (Verified 06/26/20 07:42) CONTINUE taking the following medications NK 06/26/20 [History] Follow up and Referral Follow Up: 1 Week Discharge Disposition Discharge Disposition: Home Discharge Condition: Stable Discharge Plan Discharge Plan Hospital Course: Pt is a 45 y/o m no pmhx admitted for COVID19 pneumonia(positive 06/26). He treatment course included: Remdesivir, Zosyn, Solumedrol 80mg Q8h, Tricor, Bronchodilators, supplemental O2 prn, Lovenox DVT ppx, Pneumonia protocol. Labs/imaging: Wbc 10.8, Hgb 13.3, Plt 133, Na 144, K 4.1, Cr 0.97, Glucose 135, CRP 30>29>11, CXR: No acute infiltrates. Subsegmental atelectasis left lung base unchanged. Pt responded well to treatments. He did not require any supplemental O2. Pt was discharged in stable condition, rx Levaquin x 5 days and Prednisone x 5 days, instructed to follow up with pcp in 1 week. Patient Disposition: 01 HOME, SELF-CARE Condition: Stable Health Concerns: Post Hospitalization: new medications and changes needed to prevent readmission or further decline. Pt educated and given instructions on all concerns. Care Plan Goals: Problem: Respiratory Complications Goal: Improved Uncomplicated Respiratory Status Instructions: Follow provided instructions. Follow up with primary physician as directed. Contact primary care physician or report to the closest Emergency Room if condition worsens. Plan of Treatment: Continue with present treatment and follow up plan. Pt is to keep follow up appointment as instructed and take medications as ordered. Prescriptions: New albuterol sulfate 90 mcg/actuation HFA aerosol inhaler 2 puff inhalation TIDRESP PRN (Reason: Shortness Of Breath Or Wheezing) 30 Days Qty: 1 RF: 0 hydrocodone-chlorpheniramine 10-8 mg/5 mL Suspension,Extended Rel 12 Hr 5 ml PO Q6H MDD 20 ml PRN30 Days Qty: 300 RF: 0 prednisone 20 mg tablet 40 mg PO DAILY 5 Days Qty: 10 RF: 0 levofloxacin 750 mg tablet 750 mg PO Q24H 5 Days Qty: 5 RF: 0 No Action NK RF: 0 Orders to Discharge Patient Discharge Orders: Discharge (Routine); Ordered 06/28/20 Ordered By: Steven Lucas Follow ups/Referrals Follow ups/Referrals: Steven Lucas [STAFF PHYSICIAN] - 07/05/20 10:00 am Instructions Instructions: Droplet Precautions, Hyperglycemia, [id number], Hand Washing, [id number], Cough, Adult, [id number], Abdominal Pain, Adult, Pbol-mg-Oxmx, Diarrhea, Adult, How to Use a Nebulizer, Adult, Viral Respiratory Infection, Community-Acquired Pneumonia, Adult Stand Alone Forms: Excuse From Work or School, Precautions for COVID19, Patient Portal, Social Distancing
[2020-06-28] MEDS: TRICOR TAB 160 MG PO SCH (08:42)
[2020-06-28] MEDS: LOVENOX INJ 30 MG SYR SC SCH (08:42)
[2020-06-28] MEDS: REMDESIVIR 100 MG in NS 250 ML IV 250 ML IV SCH (08:42)
[2020-06-28] MEDS: ZINC SULFATE PO SCH (08:43)
[2020-06-28] MEDS ORDERED: VITAMIN D3 125 mcg (5,000 UNITS) PO SCH (09:00)
[2020-06-28] MEDS ORDERED: VITAMIN A PO SCH (09:00)
[2020-06-28] MEDS: NS 1000 ML 1,000 ML IV SCH (09:28)
[2020-06-28 12:21] VITALS: BP 163/88
== END 2020-06-28 16:40 | disposition home or self-care (01) ==
LOC: ER 04:14 → ICU 04:14
PROVIDERS: ADMIT Internal Medicine; ATTEND Internal Medicine
DX: R06.02 Shortness of breath; R19.7 Diarrhea, unspecified; U07.1 COVID-19; R07.89 Other chest pain; J12.89 Other viral pneumonia; R79.82 Elevated C-reactive protein (CRP); R73.09 Other abnormal glucose